=== PATIENT | female | born 1930 | race Caucasian/White ===

== ENCOUNTER 2017-09-12 12:11 | Day surgery (SDC) | payer MEDICARE ==
[~2017-09-12] VITALS: Ht 172.7 cm; Wt 78.6 kg
[~2017-09-12 12:11] MED LIST: BENA10TA2 PO; METO25TA35 PO; NITR0.4T28 SL; WARF2TAB7 PO
[2017-09-12 13:01] VITALS: BP 116/75
[2017-09-12] MEDS ORDERED: LIDOCAINE 1%, 2ML ONE (13:12)
[2017-09-12] MEDS ORDERED: PROPOFOL 10 MG/ML, 20ML ONE ×2 (13:17)
[2017-09-12] MEDS ORDERED: FENTANYL PF 100 MCG/2ML ONE ×3 (13:17→17:25)
[2017-09-12 13:28] LABS: CULTURE INDICATED? YES; HCG UR SG 1.015 (1.003-1.030); MICROSCOPIC INDICATED
[2017-09-12] MEDS ORDERED: LACTATED RINGERS 1,000 ML IV SCH (13:28)
[2017-09-12 13:56] LABS: ANION GAP 7 mmol/L (5-15); CALCIUM 9.5 mg/dL (8.5-10.1); CHLORIDE 109 mmol/L (98-107); CREATININE 1.09 mg/dL (0.55-1.02)
[2017-09-12 13:57] LABS: ALBUMIN 3.5 g/dL (3.4-5.0)
[2017-09-12 14:02] LABS: ALANINE AMINOTRANSFERASE 17 U/L (12-78); ALKALINE PHOSPHATASE 114 U/L (45-117); BILIRUBIN,TOTAL 0.6 mg/dL (0.2-1.0); TOTAL PROTEIN 7.6 g/dL (6.4-8.2)
[2017-09-12] MEDS ORDERED: PROMETHAZINE 25 MG/ML, 1ML IV PRN (14:30)
[2017-09-12] MEDS ORDERED: FENTANYL PF 100 MCG/2ML IV PRN (14:30)
[2017-09-12] MEDS ORDERED: hydrALAzine 20 MG/ML, 1ML IV PRN (14:30)
[2017-09-12] MEDS ORDERED: ONDANSETRON 2MG/ML, 2ML IVPush PRN (14:30)
[2017-09-12] MEDS ORDERED: ACETAMINOPHEN 325 MG TABLET PO PRN (14:30)
[2017-09-12] MEDS ORDERED: morphine SULFATE 10 MG/ML, 1ML IV PRN (14:30)
[2017-09-12] MEDS ORDERED: HYDROcodone/APAP 7.5-325MG/15ML UDC PO PRN (14:30)
[2017-09-12] MEDS ORDERED: LABETALOL 5MG/ML, 20ML IV PRN (14:30)
[2017-09-12] MEDS ORDERED: CIPROFLOXACIN/PMX 400MG/200ML 200 ML IVPB ONE (15:00)
[2017-09-12] MEDS ORDERED: ROCURONIUM 10 MG/ML,10ML ONE (15:32)
[2017-09-12] MEDS ORDERED: ONDANSETRON 2MG/ML, 2ML ONE (15:32)
[2017-09-12] MEDS ORDERED: DEXAMETHASONE 4 MG/ML, 1ML ONE (15:32)
[2017-09-12] MEDS ORDERED: hydrALAzine 20 MG/ML, 1ML ONE (16:45)
[2017-09-12] MEDS ORDERED: OXYcodone/APAP 5/325MG TABLET PO PRN (17:00)
[2017-09-12] MEDS ORDERED: HYDROcodone/APAP 7.5-325MG/15ML UDC ONE (17:25)
[2017-09-12] MEDS ORDERED: DIPHENHYDRAMINE 50 MG/ML, 1ML ONE (17:50)
[2017-09-12] MEDS ORDERED: DIPHENHYDRAMINE 50 MG/ML, 1ML IVPush ONE (18:00)
[2017-09-12] MEDS ORDERED: OPIUM/BELLADONNA SUPP.RECT 16.2-30 MG ONE (18:51)
[2017-09-12] MEDS ORDERED: OPIUM/BELLADONNA SUPP.RECT 16.2-30 MG PR PRN (19:00)
== END 2017-09-12 20:45 | disposition home or self-care (01) ==
LOC: OUT 12:11 → 4NOR 19:20 → OUT 20:45
PROVIDERS: ATTEND Urology
DX: C67.9 Malignant neoplasm of bladder, unspecified (principal); I10 Essential (primary) hypertension; Z88.1 Allergy status to other antibiotic agents; Z90.49 Acquired absence of other specified parts of digestive tract; Z98.890 Other specified postprocedural states; Z95.0 Presence of cardiac pacemaker
CPT/HCPCS: 36415; 52240; 80053; 81001; 81025; 87086; 88307; 93005; J0360; J0744; J1100; J1200; J2405; J2550; J2704; J3010; J7120